=== PATIENT | male | born 1985 | race Caucasian/White ===

== ENCOUNTER 2021-12-15 08:21 | Emergency (ER) | payer SELFPAY ==
[2021-12-16] MEDS ORDERED: NO HOME MEDS (21:51)
== END 2021-12-15 09:30 | disposition left against medical advice (07) ==
LOC: ER 08:21
DX: R20.0 Anesthesia of skin (principal); Z53.21 Procedure and treatment not carried out due to patient leaving prior to being seen by health care provider
CPT/HCPCS: 99283